=== PATIENT | male | born 1975 | race Two or more races ===

== ENCOUNTER 2016-11-07 17:24 | Inpatient (IN) | payer MEDICAID, OTHER ==
[~2016-11-07] VITALS: Ht 180.3 cm; Wt 133.0 kg
[~2016-11-07 17:24] MED LIST: GLYCOPYRROLATE 0.2 MG/ML 1ML VIAL IV ONE; NEOSTIGMINE 1 MG/ML INJ (10mg/10ML VIAL) IV ONE; ROCURONIUM 10MG/ML 10ML VIAL IV ONE; SUCCINYLCHOLINE CHLORIDE 20 MG/ML 10ML VIAL IV ONE
[2016-11-07] MEDS ORDERED: HYDROmorphone HCL 2 MG/ML VL IV ONE ×2 (17:45→21:15)
[2016-11-07] MEDS ORDERED: ONDANSETRON HCL 4 MG/2 ML VIAL IV ONE (17:45)
[2016-11-07 18:03] LABS: Basophils # (auto) 0 uL; Basophils % (auto) 0.4 % (0.0-2.0); Eosinophils # (auto) 0.1 uL; Eosinophils % (auto) 0.9 % (0.0-7.0); Hematocrit 45.9 % (41.0-53.0); Hemoglobin 15.4 g/dL (13.5-17.5); Lymphocytes # (auto) 2.1 uL; Lymphocytes % (auto) 19.2 % (10.0-50.0); Mean Corpuscular Hemoglobin 30.7 pg (28.0-32.0); Mean Corpuscular Hgb Conc. 33.5 g/dL (32.0-36.0); Mean Corpuscular Volume 91.6 fL (80.0-100.0); Mean Platelet Volume 7.2 fL (7.4-10.4); Monocytes # (auto) 0.5 uL; Monocytes % (auto) 4.5 % (0.0-12.0); Neutrophils # (auto) 8.2 uL; Platelet Count (auto) 293 10^3/uL (140-450); Red Cell Distribution Width 13.2 % (11.6-16.0); White Blood Cell 10.9 10^3/uL (4.4-10.8)
[2016-11-07 18:22] LABS: INR 0.9 (0.9-1.15); Partial Thromboplastin Time 27.9 sec (22.64-33.71); Prothrombin Time 9.8 sec (9.37-12.3)
[2016-11-07 18:31] LABS: Albumin 4.1 g/dL (3.4-5.0); BUN/Creatinine Ratio 15.9; Calcium 8.9 mg/dL (8.5-10.1); Magnesium 2.1 mg/dL (1.6-2.6); Potassium 3.9 mmol/L (3.5-5.1)
[2016-11-07 18:34] LABS: Bilirubin, Total 0.3 mg/dL (0.2-1.0); Total Protein 8.5 g/dL (6.4-8.2)
[2016-11-07] MEDS ORDERED: MORPHINE SULFATE 4 MG/ML SYRG IV ONE (19:15)
[2016-11-07] MEDS ORDERED: SODIUM CHLORIDE 0.9% 1,000 ML IV ONE (19:15)
[2016-11-07] MEDS ORDERED: PIPERACILLIN-TAZOB 3.375GM 100 ML IV ONE (19:30)
[2016-11-07 21:55] LABS: Urine Bilirubin Negative (Negative); Urine Blood Negative /uL (Negative); Urine Color Yellow (Yellow); Urine Glucose Normal (Normal); Urine Ketone Negative (Negative); Urine Mucus FEW (None Seen); Urine Nitrite Negative (Negative); Urine RBC 7 /hpf (0 - 3); Urine Squamous Epithelial Cell FEW /hpf (<5); Urine Urobilinogen Normal (Negative)
[2016-11-07] MEDS ORDERED: SODIUM CHLORIDE 0.9% 1,000 ML IV SCH (23:14)
[2016-11-07] MEDS ORDERED: ONDANSETRON HCL 4 MG/2 ML VIAL IV PRN (23:15)
[2016-11-07] MEDS ORDERED: MORPHINE SULF INJ 2 MG/ML SYRINGE 1ML IV PRN (23:15)
[2016-11-08 01:30] VITALS: BP 128/96
[2016-11-08 05:00] VITALS: BP 129/76
[2016-11-08 05:50] LABS: Basophils # (auto) 0 uL; Basophils % (auto) 0.4 % (0.0-2.0); Eosinophils # (auto) 0.1 uL; Eosinophils % (auto) 0.7 % (0.0-7.0); Hematocrit 39.5 % (41.0-53.0); Hemoglobin 13.2 g/dL (13.5-17.5); Lymphocytes # (auto) 2.3 uL; Lymphocytes % (auto) 21.3 % (10.0-50.0); Mean Corpuscular Hemoglobin 30.9 pg (28.0-32.0); Mean Corpuscular Hgb Conc. 33.4 g/dL (32.0-36.0); Mean Corpuscular Volume 92.7 fL (80.0-100.0); Mean Platelet Volume 7.4 fL (7.4-10.4); Monocytes # (auto) 0.8 uL; Monocytes % (auto) 7.9 % (0.0-12.0); Neutrophils # (auto) 7.5 uL; Neutrophils % (auto) 69.7 % (37.0-80.0); Platelet Count (auto) 243 10^3/uL (140-450); Red Cell Distribution Width 12.9 % (11.6-16.0); White Blood Cell 10.7 10^3/uL (4.4-10.8)
[2016-11-08 06:03] LABS: Albumin 3.2 g/dL (3.4-5.0); BUN/Creatinine Ratio 13.7; Potassium 3.8 mmol/L (3.5-5.1)
[2016-11-08 06:05] LABS: Bilirubin, Total 0.4 mg/dL (0.2-1.0); Total Protein 6.7 g/dL (6.4-8.2)
[2016-11-08 07:53] VITALS: BP 141/90
[2016-11-08 12:05] VITALS: BP 135/90
[2016-11-08] MEDS ORDERED: cefTRIAXone 1GM/50ML D5W 50 ML IV ONE (14:00)
[2016-11-08] MEDS ORDERED: PANTOPRAZOLE SODIUM 40 MG/10 ML VIAL IV ONE (14:00)
[2016-11-08] MEDS: D5W/ SOD CHL 0.9%/KCL 20MEQ 1,000 ML IV SCH (14:06)
[2016-11-08] MEDS: metroNIDAZOLE 500MG/100ML 100 ML IV SCH ×2 (14:06→21:22)
[2016-11-08 15:53] VITALS: BP 126/78
[2016-11-08 22:00] VITALS: BP 124/76
[2016-11-09 05:00] VITALS: BP 153/89
[2016-11-09] MEDS: metroNIDAZOLE 500MG/100ML 100 ML IV SCH ×3 (05:50→22:36)
[2016-11-09 09:00] VITALS: BP 138/92
[2016-11-09] MEDS ORDERED: ceFAZolin 1GM/50ML D5W 50 ML IV ONE (09:33)
[2016-11-09] MEDS ORDERED: MIDAZOLAM HCL 1MG/1ML-2 ML VIAL ONE (09:58)
[2016-11-09] MEDS ORDERED: fentaNYL CITRATE 5 ML ONE (09:58)
[2016-11-09] MEDS ORDERED: ROCURONIUM 10MG/ML 10ML VIAL IV ONE (09:59)
[2016-11-09] MEDS ORDERED: PROPOFOL 10 MG/ML 20 ML IV ONE (09:59)
[2016-11-09] MEDS: PANTOPRAZOLE SODIUM 40 MG/10 ML VIAL IV SCH (10:00)
[2016-11-09] MEDS: HYDROmorphone HCL 2 MG/ML VL IV PRN ×4 (11:44→22:37)
[2016-11-09] MEDS ORDERED: hydrALAZINE HCL 20 MG/ML VL IV PRN (11:45)
[2016-11-09] MEDS ORDERED: ONDANSETRON HCL 4 MG/2 ML VIAL IV ONE (11:45)
[2016-11-09] MEDS ORDERED: ePHEDrine SULFATE 50 MG/ML AMP IV PRN (11:45)
[2016-11-09] MEDS: cefTRIAXone 1GM/50ML D5W 50 ML IV SCH (13:20)
[2016-11-09] MEDS: D5W/ SOD CHL 0.9%/KCL 20MEQ 1,000 ML IV SCH ×3 (13:43→20:34)
[2016-11-09 17:00] VITALS: BP 129/82
[2016-11-09 22:00] VITALS: BP 127/72
[2016-11-10] MEDS: HYDROmorphone HCL 2 MG/ML VL IV PRN ×2 (04:13→20:24)
[2016-11-10 05:00] VITALS: BP 140/87
[2016-11-10] MEDS: D5W/ SOD CHL 0.9%/KCL 20MEQ 1,000 ML IV SCH ×2 (06:02→16:00)
[2016-11-10] MEDS: metroNIDAZOLE 500MG/100ML 100 ML IV SCH ×3 (06:02→22:15)
[2016-11-10 09:16] VITALS: BP 124/61
[2016-11-10] MEDS: cefTRIAXone 1GM/50ML D5W 50 ML IV SCH (09:42)
[2016-11-10] MEDS: PANTOPRAZOLE SODIUM 40 MG/10 ML VIAL IV SCH (09:42)
[2016-11-10 12:53] VITALS: BP 134/85
[2016-11-10 17:17] VITALS: BP 128/80
[2016-11-10 21:27] VITALS: BP 132/61
[2016-11-11] MEDS: HYDROmorphone HCL 2 MG/ML VL IV PRN (00:42)
[2016-11-11] MEDS: D5W/ SOD CHL 0.9%/KCL 20MEQ 1,000 ML IV SCH ×2 (02:00→14:20)
[2016-11-11 04:56] VITALS: BP 154/68
[2016-11-11] MEDS: metroNIDAZOLE 500MG/100ML 100 ML IV SCH ×2 (05:45→14:00)
[2016-11-11 09:30] VITALS: BP 129/74
[2016-11-11] MEDS: PANTOPRAZOLE SODIUM 40 MG/10 ML VIAL IV SCH (09:42)
[2016-11-11] MEDS: cefTRIAXone 1GM/50ML D5W 50 ML IV SCH (09:42)
[2016-11-11] MEDS ORDERED: METR500T PO (11:28)
[2016-11-11] MEDS ORDERED: CIPR-173 PO (11:28)
[2016-11-11 12:02] VITALS: BP 121/71
== END 2016-11-11 14:09 | disposition home or self-care (01) | DRG 263 ==
LOC: ER 17:24 → EAST 17:25
PROVIDERS: ADMIT Emergency Medicine; ATTEND Internal Medicine
PROC: 0FT44ZZ Resection of Gallbladder, Percutaneous Endoscopic Approach (ICD-10-PCS; principal; 2016-11-09 09:57)
DX: K80.12 Calculus of gallbladder with acute and chronic cholecystitis without obstruction (principal); K57.32 Diverticulitis of large intestine without perforation or abscess without bleeding; Z68.41 Body mass index [BMI] 40.0-44.9, adult; E66.01 Morbid (severe) obesity due to excess calories; R16.0 Hepatomegaly, not elsewhere classified; K82.8 Other specified diseases of gallbladder
CPT/HCPCS: 36415; 74176; 76705; 80053; 81001; 82150; 82247; 83690; 83735; 85025; 85610; 85730; 86850; 86900; 86901; 87040; 87070; 87075; 87077; 87186; 87205; 93005; 96365; 96366; 96375; 96376; C9113; J0330; J0690; J0696; J2250; J2405; J2543; J2704; J3490